=== PATIENT | male | born 1950 | race Caucasian/White ===

== ENCOUNTER 2017-07-22 15:14 | Inpatient (IN) | payer OTHER ==
[~2017-07-22] VITALS: Ht 147.3 cm; Wt 52.2 kg
--- NOTE | ~2017-07-22 | PLAN ---
[facility] [place] [address] REHAB UNIT PLAN OF CARE Name: JOE LITTLEJOHN Room #: 514-P ADM IN M.R.#: [id number] Admission: 07/22/17 Attend Phys: Gonzalo Santa MD Discharge: Date of : 50 Report #: [id number] THIS REPORT FOR: //name// CC: Gonzalo Bailey sadaf DATE OF SERVICE: 07/25/2017 SUBJECTIVE: The patient is seen back today in followup. He was in no distress. Last recorded temperature 98.8, pulse 82, respirations 16, blood pressure 116/69. He is alert, pleasant. He has dense left upper and left lower extremity plegia. We are using a khoury splint to the left upper extremity and utilizing a PRAFO boot for the left lower extremity. Transfers are dependent. He is to dependent sit to stand, dependent 7 feet with an assistive device including lifting device. As far as attempted gait. In occupational therapy, upper body dressing is mod assist, lower body dressing is dependent. Speech therapy, has mild comprehensive deficits. ASSESSMENT: 1. Right frontoparietal intraparenchymal hematoma. He has an AV malformation, being handled nonsurgically at this time. We will need follow up with Neurosurgery in 4-6 weeks. 2. Dense left upper and left lower extremity hemiplegia. 3. Some left hemisensory decrease. 4. Hypertension. 5. Diabetes mellitus. 6. Bipolar affective disorder. 7. Hyperlipidemia. PLAN: The overall plan of care is based on the preadmission screen, post-admission physician evaluation and information garnered from therapy assessments. 1. Estimated length of stay will likely be fairly long as he is at a lower functional level. 2. Medical prognosis is reasonably good. 3. Anticipated interventions includes the interdisciplinary acute inpatient rehabilitation program with the goal of maximizing the patient's functional independence, so he can return back to his prior living situation. 4. Anticipated functional outcomes would be for the patient to improve with basic transfers, functional mobility and ADLs and hopefully get some return back of the left side. Also to work on comprehension. 5. Discharge destination would be back to the home setting. At this point, would involve his sons. He has been living in a mobile home with 5 steps to enter on his son's property. He indicated his son's would be able to assist should he need it upon discharge. 6. Expected therapy by discipline includes PT and OT and speech 1 hour per day [address] [address] REHAB UNIT PLAN OF CARE Name: JOE LITTLEJOHN Room #: 514-P ADM IN M.R.#: [id number] Admission: 07/22/17 Attend Phys: Gonzalo Santa MD Discharge: Date of : 50 Report #: [id number] each five days a week throughout the duration of the acute inpatient rehabilitation stay. <ELECTRONICALLY SIGNED> By: Gonzalo Santa MD 07/28/17 1226 0914 192 Gonzalo Santa MD /MILES
--- NOTE | ~2017-07-22 | HC ---
[facility] [place] [address] CONSULTATION Name: JOE LITTLEJOHN Room #: 514-P [facility] IN M.R.#: [id number] Admission: 07/22/17 Attend Phys: Gonzalo Santa MD Discharge: Date of : 50 Report #: [id number] THIS REPORT FOR: //name// CC: Gonzalo Newman REASON FOR CONSULTATION: Consult has been requested by Dr. Santa for management of hypertension and diabetes. HISTORY OF PRESENT ILLNESS: The patient is a 66-year-old male with history of hypertension, hyperlipidemia, bipolar disorder, diabetes who was initially admitted on 07/13/2017 at [facility] for intracranial bleed. Initially, the patient presented to [facility] and was subsequently transferred to [facility]. He presented to [facility] with left-sided weakness and facial droop. CT scan showed right-sided frontoparietal intraparenchymal hemorrhage with surrounding cerebral edema and possible underlying mass. The patient underwent a cerebral angiogram, which showed AV malformation superficial and medial to the right frontoparietal hematoma. He has several feeding pedicles arising from the right MCA/SULMA branches. It is not amenable to intervention. The patient was seen by Neurosurgery and was advised to follow up with Neurosurgery in 4-6 weeks for possible intervention. PAST MEDICAL HISTORY: Significant for hypertension, hyperlipidemia and bipolar disorder. No diabetes. ALLERGIES: ALLERGIC TO CODEINE. Please look at the nursing documentation for reaction. SOCIAL HISTORY: No smoking. Denies any alcohol abuse or illicit drug abuse. He was living in a trailer on his ____ property. FAMILY HISTORY: Hypertension. HOME MEDICATIONS: The patient was discharged on Flomax, Seroquel, Sandie-Colace, lisinopril, Norvasc, Coreg, baclofen, alprazolam, Tylenol. He was on sliding scale insulin. Please look at the nursing documentation for the medication list. REVIEW OF SYSTEMS: He denies any complaint other than weakness on his right side at present. The patient is not very cooperative at present. He is little frustrated and upset that he has been seen by the physical therapist/speech therapist earlier today. PHYSICAL EXAMINATION: VITAL SIGNS: Reveal blood pressure of 89/54, heart rate of 69 per minute, afebrile. [address] [address] CONSULTATION Name: JOE LITTLEJOHN Room #: 514-P [facility] IN M.R.#: [id number] Admission: 07/22/17 Attend Phys: Gonzalo Santa MD Discharge: Date of : 50 Report #: [id number] GENERAL: He is awake, alert, not in acute respiratory distress. HEENT: Eyes: Pupils equal, reactive to light. Extraocular movements intact. He has left-sided facial droop. NECK: Supple, no JVD, no bruit, no lymphadenopathy. CARDIOVASCULAR: S1, S2, negative S3, no murmur. CHEST: Bilateral air entry present. Clear on auscultation. ABDOMEN: Soft, bowel sounds present. No mass, no organomegaly, no tenderness. PERIPHERY: No pedal edema. No calf tenderness. Dorsalis pedis 1+. NEUROLOGICAL: He has flattening of the left-sided furrow. He has profound weakness on the left side, upper and lower extremity, power is 1/5. LABORATORY DATA: Reviewed. White count is 17.9. Blood glucose of 142. His BUN and creatinine is 40 and 1.4. Sodium is 140. Platelet is 235. ASSESSMENT AND PLAN: 1. Left-sided hemiplegia secondary to right-sided frontoparietal intraparenchymal bleed with cerebral edema. The patient will continue on physical and occupational therapy as per Dr. Santa's recommendation. 2. Cerebral angiogram showed arteriovenous malformation superficial and medial to the right frontoparietal hematoma at [facility]. The patient needs to follow up with Neurosurgery in 4-6 weeks for possible intervention. 3. Hypertension. The patient's blood pressure is on the low end this morning. We will have parameters to hold blood pressure medications and monitor. 4. Leukocytosis. We will go ahead and get UA and also check a chest x-ray today. 5. Diabetes. The patient is presently on sliding scale insulin, which will be continued. We will check an A1c level. 6. History of bipolar disorder, on Seroquel. Treatment plan has been explained to the patient in detail. Deep venous thrombosis prophylaxis. He will be on SCD on the leg for DVT prophylaxis. <ELECTRONICALLY SIGNED> By: Terence Gunn MD 07/27/17 1540 1051 [id number] Terence Gunn MD /nt
--- NOTE | ~2017-07-22 | EKG ---
[address] [address] ELECTROCARDIOGRAM REPORT Name: JOE LITTLEJOHN Room #: 514-P [facility] IN M.R.#: [id number] Admission: 07/22/17 Attend Phys: Gonzalo Santa MD Discharge: 07/31/17 Date of : 50 Report #: [id number] THIS REPORT FOR: //name// [facility] Test Date: 2017-07-31 Test Time: 17:29:17 Pat Name: JOE LITTLEJOHN Department: Room: 514 Gender: M Bottle Hop: Moody LOPEZ : 1950 Requested By: Gonzalo Santa Order Number: [id number] MD: Joe Irvin Measurements Intervals Dawson Rate: 76 P: 42 IL: 138 QRS: 28 QRSD: 87 T: 31 QT: 379 QTc: 427 Interpretive Statements Sinus rhythm No significant abnormality No previous ECG available for comparison Electronically Signed On 08-01-2017 8:49:38 ANIMAL BIOLOGIST by Joe Irvin [email or web address] <ELECTRONICALLY SIGNED> By: Joe Irvin MD, [facility] 08/01/17 0849 1729 1729 Joe Irvin MD, FACC /EPI
--- NOTE | ~2017-07-22 | H ---
[facility] [place] [address] HISTORY AND PHYSICAL Name: JOE LITTLEJOHN Room #: 514-P ADM IN M.R.#: [id number] Admission: 07/22/17 Attend Phys: Gonzalo Santa MD Discharge: Date of : 50 Report #: [id number] THIS REPORT FOR: //name// CC: Gonzalo Bailey [facility]christy DATE OF SERVICE: 07/23/2017 HISTORY AND PHYSICAL/POSTADMISSION PHYSICIAN EVALUATION HISTORY OF PRESENT ILLNESS: The patient is a 66-year-old male with a prior history of hypertension, hyperlipidemia, bipolar disorder, diabetes mellitus who was originally seen at [facility] on 07/12/2017 after developing left-sided weakness and facial droop. He was noted to be hypertensive on admission in the 160s. CT of the head revealed a right-sided frontoparietal intraparenchymal hemorrhage with surrounding cerebral edema and possible underlying mass. He was transferred to [facility]. Neurosurgery consulted. He was placed on a Cardene drip. He had continued dense left hemiplegia with sensory deficits. He underwent cerebral angiogram, which showed an AVM superficial and medial to a right frontoparietal hematoma. This was not amenable to intervention. Plan is for followup in 4-6 weeks for possible procedure. He was started on amlodipine and lisinopril for hypertension. He also was started on atorvastatin for hyperlipidemia. He continued to have significant left-sided weakness, noted to have significant functional mobility and ADL deficits as well as cognitive concerns and visual perceptual issues. He has been admitted now in transfer to the acute inpatient rehabilitation [place] at [facility]. PAST MEDICAL HISTORY: Again includes the hypertension, hyperlipidemia, bipolar disorder and diabetes mellitus. His diabetes was noted to be uncontrolled at [facility]. ALLERGIES: INCLUDE CODEINE. SOCIAL HISTORY: He has been living on a trailer on his son's property. He has 2 sons that he indicates would be able to assist him. He indicated that there is a cousin, Ochoa Ng that he does not want to be involved with his care. Premorbidly he had been independent, ambulatory without gait aids. REVIEW OF SYSTEMS: Did not offer any current complaints of chest pain, shortness of breath, or abdominal discomfort. He has some frustration with the left-sided dense weakness as noted. No focal extremity pain complaints. HABITS: History of tobacco abuse. PHYSICAL EXAMINATION: [address] [address] HISTORY AND PHYSICAL Name: JOE LITTLEJOHN Room #: 514-P [facility] IN M.R.#: [id number] Admission: 07/22/17 Attend Phys: Gonzalo Santa MD Discharge: Date of : 50 Report #: [id number] GENERAL: A 66-year-old male in no obvious distress. VITAL SIGNS: Last recorded temperature 99.5, pulse 101, respirations 20, blood pressure 105/72. GENERAL: The patient is alert. HEENT: Facies appeared symmetric. He might have a mild depressed left nasolabial fold. EOMs appeared to be full. I could not detect any obvious visual field deficits to confrontation. CHEST: Sounded clear to auscultation. CARDIOVASCULAR: Regular rate and rhythm. ABDOMEN: Bowel sounds positive, nontender. GENITOURINARY AND RECTAL: Deferred. EXTREMITIES: He has functional range of motion and strength of the right upper and right lower extremity without focal weakness. He has dense left upper and left lower extremity flaccid plegia, proximal and distal. There is no clonus. Negative Rausch's. He does have grade 1-2 biceps DTR. Sensation actually was fairly intact to simultaneous stimulation left upper and left lower extremity compared to the right upper and right lower extremity. He does need assistance with basic functional mobility skills and he is at a lower functional level with his dense left hemiplegia. ASSESSMENT: A 66-year-old left-handed male with the following problem list: 1. Right frontoparietal intraparenchymal hematoma. He does have an AV malformation, which is currently being handled nonsurgically, but he will need to follow up with Neurosurgery in 4-6 weeks. 2. Dense left upper and left lower extremity hemiplegia. 3. Some left hemisensory decrease. 4. Hypertension. 5. Diabetes mellitus. 6. Bipolar affective disorder. 7. Hyperlipidemia. 8. History of tobacco abuse. PLAN: The patient is admitted for acute in-hospital inpatient rehabilitation. From a postadmission physician evaluation perspective, there are no relevant changes since the preadmission screening. Please see the above review of prior and current medical and functional conditions and comorbidities. Please see the patient's previous and current functional status. As far as risk of complications, he has multiple medical comorbidities as noted above. Measurable functional goals would be for the patient to improve as far as basic transfers, mobility and ADLs and cognition. Visual perceptual issues, so he can hopefully return back to the home setting. Prognosis is reasonably good with estimated length of stay probably fairly along with his lower functional level. Potential [facility] [address] [place] [address] HISTORY AND PHYSICAL Name: JOE LITTLEJOHN Room #: 514-P ADM IN M.R.#: [id number] Admission: 07/22/17 Attend Phys: Gonzalo Santa MD Discharge: Date of : 50 Report #: [id number] barriers would include his multiple medical comorbidities and decreased functional status. <ELECTRONICALLY SIGNED> By: Gonzalo Santa MD 07/28/17 1226 0913 0934 Gonzalo Santa MD /PMT
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
--- NOTE | ~2017-07-22 | HC ---
[facility] [place] [address] CONSULTATION Name: JOE LITTLEJOHN Room #: 514-P [facility] IN M.R.#: [id number] Admission: 07/22/17 Attend Phys: Gonzalo Santa MD Discharge: 07/31/17 Date of : 50 Report #: [id number] THIS REPORT FOR: //name// CC: Gonzalo Santa [facility] DATE OF SERVICE: 07/31/2017 HISTORY OF PRESENT ILLNESS: This is a 66-year-old male patient for whom a Neurology consultation was requested because this patient started having some twitching movements on the left upper and left lower extremity. History is somewhat poor. He indicates that he has a left hemiplegia because of what looks like an intracerebral hemorrhage or hemorrhagic stroke. He indicated this happened a few weeks ago, but he felt worse today. I do not have records from [facility], but I reviewed the record, which is here in the hospital and it looks like the deficit happened on about 07/12/2017 and this patient has an AV malformation. He never had any jay seizures. We do not have films from [facility]. REVIEW OF SYSTEMS: Positive for bipolar disorder, diabetes, hypertension and looks like this patient had AV malformation. His hypertension was uncontrolled and he needed multiple medications when he was in [facility]. I carried out the best I can a 14-point review of system and this was his relevant 14-point review of system. PAST MEDICAL HISTORY: Positive for hemorrhage, which occurred about 2 weeks ago and looked like because of AV malformation. FAMILY HISTORY: Negative for epilepsy. SOCIAL HISTORY: He says he smokes. PHYSICAL EXAMINATION: The patient's examination was limited. He is alert and responsive. He can follow simple commands. He is not complaining of any headache. He indicated his memory is at his baseline. Cranial nerve examination 2-12 demonstrated pretty significant left facial palsy. He has a pretty dense hemiplegia on the left side. There is no meningeal sign. There is no carotid bruit. IMAGING: He underwent a CT scan of the head and CT scan of the head does demonstrate what looks like a pretty large hemorrhage with a significant amount of edema. LABORATORY DATA: His labs were done a couple of days ago and his sodium was normal. [address] [address] CONSULTATION Name: JOE LITTLEJOHN Room #: 514-P [facility] IN .R.#: [id number] Admission: 07/22/17 Attend Phys: Gonzalo Santa MD Discharge: 07/31/17 Date of : 50 Report #: [id number] VITAL SIGNS: Here indicate a blood pressure of 143/70, respiration is 12, pulse is 78 and temperature is 98.4. IMPRESSION: This patient has a large intracerebral hemorrhage. He may be trying to develop seizures. The problem we are facing here is that I do not have his records and the films here. We also do not have any Neurosurgery here. I discussed that aspect with the patient. I asked Radiology to upload his images to the cloud and I talked to the hospitalist and I recommended that they talk to [facility] Neurosurgery and ask them to review the patient's CT scan and compare with the last CT scan and give us some direction if they want us to keep the patient here or wanted to be transferred there. Since we do not have any Neurosurgery and this patient does have AV malformation and bleed after that, we have to rely on the neurosurgeons there. I subsequently talked to the hospitalist again and they indicated that [facility] wants the patient to be transferred and the patient is going to be transferred. In this circumstances, I will defer further evaluation and management to [facility] neurosurgical team. Thank you very much for this referral and if you have any question, please feel free to contact me. More than 35 minutes of [id number] time was spent taking care of this patient today and majority of time was spent counseling the patient and coordinating his care. Thank you very much for this referral. <ELECTRONICALLY SIGNED> By: Salvador Del Rio MD 08/04/17 1659 27 0544 Salvador Del Rio MD /nt
[2017-07-22 18:00] VITALS: BP 103/67
[2017-07-22 20:13] VITALS: BP 105/72
[2017-07-23 03:55] LABS: HEMATOCRIT 43.2 % (42.0-52.0); HEMOGLOBIN 14.6 gm/dL (14.0-18.0); MCH 29.9 pg (26.0-34.0); MCHC 33.8 g/dL (28.0-37.0); MCV 88.4 fL (80.0-100.0); RBC 4.88 mil/uL (4.50-6.00); RDW 14.1 % (10.5-14.5); WBC 17.9 thou/uL (4.0-11.0)
[2017-07-23 03:59] LABS: CREATININE 1.4 mg/dL (0.7-1.3); POTASSIUM 3.7 mmol/L (3.5-5.1)
[2017-07-23 08:02] VITALS: BP 101/63
[2017-07-23 08:19] VITALS: BP 89/54
[2017-07-23 17:54] LABS: URINE BILIRUBIN NEGATIVE (Negative); URINE BLOOD NEGATIVE (Negative); URINE CLARITY CLEAR; URINE COLOR YELLOW; URINE GLUCOSE-RANDOM* NEGATIVE (Negative); URINE KETONES NEGATIVE (Negative); URINE LEUKOCYTES-REFLEX NEGATIVE (Negative); URINE NITRITE-REFLEX NEGATIVE (Negative); URINE PROTEIN (DIPSTICK) NEGATIVE (Negative); URINE UROBILINOGEN 0.2 E.U./dl (0.2-1.0)
[2017-07-23 19:10] VITALS: BP 108/69
[2017-07-24 04:13] LABS: CALCIUM 9.3 mg/dL (8.5-10.1); CREATININE 1.3 mg/dL (0.7-1.3); POTASSIUM 4.2 mmol/L (3.5-5.1)
[2017-07-24 04:25] LABS: ABSOLUTE NEUTROPHILS 7.7 thou/uL (1.4-8.2); BASOPHILS 0.9 % (0.0-2.0); HEMATOCRIT 42.4 % (42.0-52.0); HEMOGLOBIN 14.1 gm/dL (14.0-18.0); MCH 29.8 pg (26.0-34.0); MCHC 33.3 g/dL (28.0-37.0); MCV 89.3 fL (80.0-100.0); MONOCYTES 9.1 % (1.0-8.0); PLATELET COUNT 255 thou/uL (150-400); RBC 4.75 mil/uL (4.50-6.00); RDW 14.2 % (10.5-14.5); WBC 12.6 thou/uL (4.0-11.0)
[2017-07-24 08:00] VITALS: BP 110/76
[2017-07-24 19:00] VITALS: BP 116/69
[2017-07-25 08:00] VITALS: BP 99/58
[2017-07-25 12:40] VITALS: BP 125/72
[2017-07-25 15:51] VITALS: BP 108/54
[2017-07-25 19:35] VITALS: BP 96/50
[2017-07-26 07:59] VITALS: BP 111/66
[2017-07-26 20:35] VITALS: BP 114/51
[2017-07-27 08:00] VITALS: BP 111/62
[2017-07-27 19:19] VITALS: BP 138/105
[2017-07-28 08:30] VITALS: BP 130/75
[2017-07-28 20:46] VITALS: BP 119/68
[2017-07-29 05:52] LABS: ABSOLUTE NEUTROPHILS 9.5 thou/uL (1.4-8.2); BASOPHILS 1.1 % (0.0-2.0); EOSINOPHILS 3.1 % (0.0-3.0); HEMATOCRIT 44.9 % (42.0-52.0); HEMOGLOBIN 14.8 gm/dL (14.0-18.0); LYMPHOCYTES 18.2 % (24.0-44.0); MCH 29.1 pg (26.0-34.0); MONOCYTES 6.8 % (1.0-8.0); PLATELET COUNT 362 thou/uL (150-400); POLYS 70.8 % (36.0-66.0); RDW 13.9 % (10.5-14.5); WBC 13.4 thou/uL (4.0-11.0)
[2017-07-29 05:58] LABS: CALCIUM 9.3 mg/dL (8.5-10.1); CREATININE 1.4 mg/dL (0.7-1.3); MAGNESIUM 1.9 mg/dL (1.8-2.4); POTASSIUM 4.1 mmol/L (3.5-5.1)
[2017-07-29 08:00] VITALS: BP 148/72
[2017-07-29 19:10] VITALS: BP 95/68
[2017-07-30 07:57] VITALS: BP 108/60
[2017-07-30 13:07] LABS: URINE BILIRUBIN NEGATIVE (Negative); URINE BLOOD NEGATIVE (Negative); URINE CLARITY CLEAR; URINE COLOR YELLOW; URINE GLUCOSE-RANDOM* NEGATIVE (Negative); URINE KETONES NEGATIVE (Negative); URINE LEUKOCYTES-REFLEX NEGATIVE (Negative); URINE NITRITE-REFLEX NEGATIVE (Negative); URINE PROTEIN (DIPSTICK) NEGATIVE (Negative); URINE UROBILINOGEN 0.2 E.U./dl (0.2-1.0)
[2017-07-30 20:30] VITALS: BP 129/69
[2017-07-31 08:15] VITALS: BP 125/67
[2017-07-31] MEDS ORDERED: AMLODIPINE BESYL5 M1 PO (18:13)
[2017-07-31] MEDS ORDERED: FLOMAX0.4 MG PO (18:13)
[2017-07-31] MEDS ORDERED: ATORVASTATIN CA40 MG PO (18:13)
[2017-07-31] MEDS ORDERED: BACLOFEN 10MG T10 MG PO (18:13)
[2017-07-31] MEDS ORDERED: REMERON15 MG PO (18:14)
[2017-07-31] MEDS ORDERED: PANTOPRAZOLE SO40 M1 PO (18:14)
[2017-07-31] MEDS ORDERED: ACETAMINOPHEN325 M1 PO (18:14)
[2017-07-31] MEDS ORDERED: GABAPENTIN 100100 MG PO (18:14)
[2017-07-31] MEDS ORDERED: KEPPRA 500 MG500 M1 PO (18:14)
[2017-07-31 18:43] LABS: APTT 23.2 Seconds (24.5-32.8); PROTIME 9.9 Seconds (9.3-11.4)
[2017-07-31 18:55] VITALS: BP 143/70
== END 2017-07-31 20:13 | disposition short-term general hospital (02) | DRG 64 ==
PROVIDERS: Hospitalist; Internal Medicine; Nurse Practitioner; Physical Medicine & Rehabilitation
DX: I61.9 Nontraumatic intracerebral hemorrhage, unspecified (principal); G93.6 Cerebral edema; G81.94 Hemiplegia, unspecified affecting left nondominant side; Q27.30 Arteriovenous malformation, site unspecified; I10 Essential (primary) hypertension; E78.5 Hyperlipidemia, unspecified; F31.9 Bipolar disorder, unspecified; E11.9 Type 2 diabetes mellitus without complications; D72.829 Elevated white blood cell count, unspecified; R41.9 Unspecified symptoms and signs involving cognitive functions and awareness; N40.0 Benign prostatic hyperplasia without lower urinary tract symptoms; R53.81 Other malaise; G62.9 Polyneuropathy, unspecified; G47.00 Insomnia, unspecified; Z87.891 Personal history of nicotine dependence; Z88.5 Allergy status to narcotic agent; Z82.49 Family history of ischemic heart disease and other diseases of the circulatory system
CPT/HCPCS: 10092; 10112

== ENCOUNTER 2017-08-05 12:49 | Inpatient (IN) | payer OTHER ==
[~2017-08-05] VITALS: Ht 147.3 cm; Wt 49.9 kg
--- NOTE | ~2017-08-05 | H ---
[facility] [place] [address] HISTORY AND PHYSICAL Name: JOE LITTLEJOHN Room #: 503-P ADM IN M.R.#: [id number] Admission: 08/05/17 Attend Phys: Gonzalo Santa MD Discharge: Date of : 50 Report #: [id number] THIS REPORT FOR: //name// CC: [facility] DATE OF SERVICE: 08/06/2017 HISTORY AND PHYSICAL/POST-ADMISSION PHYSICIAN EVALUATION HISTORY OF PRESENT ILLNESS: This is a 66-year-old white male previously known to me with a prior history of hypertension, hyperlipidemia, bipolar disorder, diabetes mellitus, originally treated at [facility] on 07/12/2017 with developing left-sided weakness and facial droop. CT of the head revealed a right-sided frontoparietal intraparenchymal hemorrhage with surrounding cerebral edema and possible underlying mass. He was transferred to [facility]. Neurosurgery was consulted. A cerebral angiogram showed an AVM superficial and medial to a right frontoparietal hematoma. This was not amenable to intervention. Plan was to follow up in 4-6 weeks for possible procedure. The patient was noted to have significant left-sided weakness and was admitted to the inpatient rehabilitation [place] at [facility]. While he was here before he was continuing in the therapy program and on 07/31/2017, he developed recurrent acute facial symptoms. Code stroke. Neurology evaluation was undertaken with concern for worsening intracerebral bleed and/or edema. He was transferred back to [facility]. CT revealed increased edema without evidence of intracerebral hemorrhage. Decadron was started and Neurosurgery was consulted. The findings were thought to be due to irritation of the brain related to the prior intracerebral hemorrhage with breakdown of blood products. No acute surgical intervention was indicated. Recommended Keppra and followup CT in 1-2 weeks and Neurosurgery will see him in their clinic. Decadron was continued with a slow tapering dose. He did have initial elevation of the white blood count and appeared to be slowly trending down with the tapering of the Decadron. He has been readmitted now to the acute inpatient rehab salomon with the steroid taper and continuation of Keppra. PAST MEDICAL HISTORY: Includes hypertension, hyperlipidemia, bipolar disorder, and diabetes mellitus. ALLERGIES: INCLUDE CODEINE. SOCIAL HISTORY: He has been living in a trailer on his son's property. He has 2 sons that he indicates would be able to assist him. Premorbidly, he had been independent, ambulatory without gait aids. REVIEW OF SYSTEMS: No current complaints of chest pain, shortness of breath or abdominal discomfort. No focal extremity pain complaints. [address] [address] HISTORY AND PHYSICAL Name: JOE LITTLEJOHN Room #: 503-P [facility] IN M.R.#: [id number] Admission: 08/05/17 Attend Phys: Gonzalo Santa MD Discharge: Date of : 50 Report #: [id number] HABITS: History of tobacco abuse. PHYSICAL EXAMINATION: GENERAL: A 66-year-old small statured, thin, white male in no obvious distress. VITAL SIGNS: Last recorded temperature 97.8, pulse 63, respirations 20, blood pressure 113/68. NEUROLOGIC: The patient is alert. He is pleasant. Depressed left nasolabial fold. CHEST: Sounded clear to auscultation. CARDIOVASCULAR: Regular rate and rhythm. ABDOMEN: Bowel sounds positive, nontender. GENITOURINARY AND RECTAL: Deferred. EXTREMITIES: Functional range of motion and strength of the right upper and right lower extremity without focal weakness. He has dense left upper extremity plegia with some increase in tone, although he has a negative Rausch's. He has a grade 2 biceps DTR and the left lower extremity appears to have some increase in tone. 2-3+ patellar tendon reflex, although no clonus at the ankle. I could not elicit any volitional movement even proximally of that left lower extremity. Sensation has been fairly intact to simultaneous stimulation of left upper and left lower extremity. He has needed significant assistance with basic functional mobility skills. ASSESSMENT: A 66-year-old left-handed white male with the following problem list: 1. Right frontoparietal intraparenchymal hematoma. He has an AV malformation and Neurosurgery indicates that he is not a surgical candidate. 2. Seizure activity, thought due to irritation of his brain related to the prior intracerebral hemorrhage with breakdown of blood products. Keppra has been recommended with followup CT in 1-2 weeks. We will have Neurology follow here. The patient is to follow up with Neurosurgery on 08/14/2017 at 09:[address] scan and at 10:[address] Calhoun again in Neurosurgery. 3. Dense left upper extremity and left lower extremity hemiplegia. 4. Some left hemisensory decrease. 5. Hypertension. 6. Diabetes mellitus. 7. Bipolar affective disorder. 8. Hyperlipidemia. 9. History of tobacco abuse. 10. Insomnia. Trazodone p.r.n. PLAN: As noted above. We will ask Neurology to continue to follow as noted above. The Hospitalist Service to continue to assist regarding medical issues. From a postadmission physician evaluation perspective, there are no relevant changes since the preadmission screening. Please see the above review of prior and current medical and functional conditions and comorbidities. Please see the [facility] [place] [address] HISTORY AND PHYSICAL Name: JOE LITTLEJOHN Room #: 503-P ADM IN M.R.#: [id number] Admission: 08/05/17 Attend Phys: Gonzalo Santa MD Discharge: Date of : 50 Report #: [id number] patient's previous and current functional status. As far as risk of complications, the patient has the above noted multiple medical comorbidities. Initial plan of care involves the interdisciplinary acute inpatient rehabilitation program with the goal of maximizing the patient's functional independence, so he can hopefully return back to his prior living situation. Measurable functional goals would be for him to ideally become at least independent at a wheelchair level and then will need to progress from there. PROGNOSIS: Reasonably good with estimated length of stay probably pretty long as he is at a lower functional level. Potential barriers would include his medical complexity issues and significant decreased functional status. We will place him on seizure precautions. <ELECTRONICALLY SIGNED> By: Gonzalo Santa MD 08/06/17 1051 [id number] Gonzalo Santa MD /[facility]
--- NOTE | ~2017-08-05 | HC ---
[facility] [place] [address] CONSULTATION Name: JOE LITTLEJOHN Room #: 503-P [facility] IN M.R.#: [id number] Admission: 08/05/17 Attend Phys: Gonzalo Santa MD Discharge: Date of : 50 Report #: [id number] THIS REPORT FOR: //name// CC: Gonzalo Bailey [facility]christy DATE OF SERVICE: 08/09/2017 NEUROBEHAVIORAL STATUS EXAM: ATTENDING PHYSICIAN: Gonzalo Santa MD. CLOUD DEVELOPER: Brijesh Lee, PhD. CLINICAL PRESENTATION: The patient is a 66-year-old male admitted to [facility] rehabilitation unit for comprehensive inpatient rehabilitation program to improve functional mobility, activities of daily living and self-care and mental status secondary to deficits from a right frontoparietal intraparenchymal hematoma. The patient was reported to have had an AV malformation with Neurosurgery indicating that he is not a surgical candidate. The patient also has a seizure disorder secondary to neural irritation related to the intracerebral hemorrhage. Keppra has been initiated. ADDITIONAL DIAGNOSES: Include dense left upper extremity and left lower extremity hemiplegia, left hemisensory decrease, hypertension, diabetes mellitus, bipolar affective disorder, hyperlipidemia, history of tobacco abuse and use of trazodone for insomnia. A complete description of his medical condition and history can be found in his medical record. Neuropsychological consultation was requested to provide assistance in the assessment of cognitive and emotional status and to provide recommendations and services. Prior to this most recent admission, he was living in a camper on his son's property. The patient has had difficulty with judgment and problem solving. Apparently, he had run out of blood pressure medication upon leaving the home of an aunt and an uncle. He reported leaving their house because of drug abusing borders that they were taking in. Moving out of their house led to his inabilty to acquire continued medical care. 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 He has not abused drugs in the last 7 months. He has had treatment programs for depression, anxiety, and drug abuse. TECHNIQUES UTILIZED: Clinical interview, review of medical records, staff consultation and behavioral observation, mini mental status exam 2 standard version, clock drawing and category fluency assessment. EXAMINATION FINDINGS: The patient was alert and cooperative with the [address] [address] CONSULTATION Name: JOE LITTLEJOHN Room #: 503-P [facility] IN .R.#: [id number] Admission: 08/05/17 Attend Phys: Gonzalo Santa MD Discharge: Date of : 50 Report #: [id number] assessment. He accurately described the reasons for his hospitalization. There is no evidence of aphasia. His thoughts are logical and goal oriented. There is no evidence of thought disorder. Thought content is within normal limits. His primary concerns are of sleep, anxiety, word finding and memory. Previous diagnoses of bipolar disorder, PTSD and depression are reported. His performance on the MMSE 2 brief version was in the borderline range with a raw score of 13 of 16, T score 35, percentile rank of 7. His performance on the MMSE 2 standard version was in the borderline to extremely low range with a raw score of 22 of 30 and a T score of 29 and percentile rank of 2. He was 1 of 5 for serial 7's. The patient was unable to accurately copy a simple geometric design. Brief abstract reasoning test was within normal limits. His performance on category fluency test was a raw score of 23, which is within normal limits. DIAGNOSTIC IMPRESSION: Neurocognitive disorder, due to vascular disease, without behavior disorder -- extent to be determined -- likely in the mild to moderate range. Cocaine and methamphetamine abuse -- by history. Bipolar disorder and hyperlipidemia. RECOMMENDATIONS: The patient is presenting with decreased inhibition and is likely to be somewhat impulsive. Difficulty with concentration and immediate recall along with visual spatial organization will interfere with overall adaptive functioning. The use of compensatory strategies for areas of decreased functioning are indicated. Thank you very much for allowing me to provide the consultation on this patient. <ELECTRONICALLY SIGNED> By: Brijesh Lee, PhD 08/10/17 1503 [id number] Brijesh Lee, PhD /nt
--- NOTE | ~2017-08-05 | PLAN ---
[facility] [place] [address] REHAB UNIT PLAN OF CARE Name: JOE LITTLEJOHN Room #: 503-P ADM IN M.R.#: [id number] Admission: 08/05/17 Attend Phys: Gonzalo Santa MD Discharge: Date of : 50 Report #: [id number] THIS REPORT FOR: //name// CC: Gonzalo Newman DATE OF SERVICE: 08/07/2017 SUBJECTIVE: The patient is seen back today in followup. He is in no distress. Last recorded temperature is 98.3, pulse 79, respirations 16, blood pressure 107/63. Notes he is not sleeping very well. He is on the Decadron with a taper. We will defer to the hospitalist if they want to change his trazodone dosing as discussed with nursing. From a functional perspective, he is transferring with max assist and gait is max assist 20 feet with a front-wheeled walker with a left AFO. In occupational therapy, lower body dressing is max assist. In speech therapy, there are mild comprehensive deficits noted. ASSESSMENT: 1. Right frontoparietal intraparenchymal hemorrhage. He has an AV malformation and Neurosurgery indicates that he is not a surgical candidate. 2. Seizure activity. Keppra recommended with followup CT in 1-2 weeks. 3. Dense left upper extremity and left lower extremity hemiplegia. 4. Some hemisensory decrease. 5. Hypertension. 6. Diabetes mellitus. 7. Bipolar affective disorder. 8. Hyperlipidemia. 9. History of tobacco abuse. 10. Insomnia. We will defer further trazodone dosing changes to the hospitalist. PLAN: The overall plan of care is based on the preadmission screen, post-admission physician evaluation, and information garnered from therapy assessments. 1. Estimated length of stay is probably several weeks with his lower level of function. 2. Medical prognosis is reasonably good. 3. Anticipated interventions includes the interdisciplinary acute inpatient rehabilitation program. 4. Anticipated functional outcomes would be for the patient to maximize his independence with mobility and ADLs as well as cognition to become independent ideally at least at the wheelchair level and to further improve his functional independence with the walker. 5. Discharge destination will be home with family. 6. Expected therapy by discipline includes PT, OT, and speech 1 [place] [address] REHAB UNIT PLAN OF CARE Name: ERONJOE Room #: 503-P [facility] IN .R.#: [id number] Admission: 08/05/17 Attend Phys: Gonzalo Santa MD Discharge: Date of : 50 Report #: [id number] each, five days a week throughout the duration of the acute inpatient rehabilitation stay. <ELECTRONICALLY SIGNED> By: Gonzalo Santa MD 08/08/17 [id number] [id number] Gonzalo Santa MD /PMT
--- NOTE | ~2017-08-05 | HC ---
[facility] [place] [address] CONSULTATION Name: JOE LITTLEJOHN Room #: 503-P ADM IN M.R.#: [id number] Admission: 08/05/17 Attend Phys: Gonzalo Santa MD Discharge: Date of : 50 Report #: [id number] THIS REPORT FOR: //name// CC: Gonzalo Newman DATE OF SERVICE: 08/06/2017 HISTORY OF PRESENT ILLNESS: This is a 66-year-old male patient who was seen by me during last admission. This patient has a large hematoma in the right frontal area secondary to AV malformation. He follows up with a neurosurgeon at [facility]. This patient was started on Keppra. This patient has not had any further episode since starting him on Keppra. He was also started on dexamethasone. This was all done by neurosurgeon. He indicated that he is doing very well and in fact is not having any seizure-like activity or any other neurological symptom. REVIEW OF SYSTEMS: Positive for hypertension, hyperlipidemia, bipolar disorder, diabetes and he is on steroids at the moment. He had a large hematoma in the right frontal area. Otherwise, he is saying is feeling good and is not having any visual, ENT symptom, is not complaining of any chest pain or respiratory difficulty. He denies any GI, symptoms. Does not complain of any musculoskeletal, constitutional, dermatological, hematological, throat and allergic symptom. PAST MEDICAL HISTORY: Positive for what looks like AV malformation with bleeding and Neurosurgery is handling it. FAMILY HISTORY: Negative for any congenital epilepsies. SOCIAL HISTORY: Indicates that he has a history of tobacco use. PHYSICAL EXAMINATION: NEUROLOGICAL: Indicate that patient is alert, responsive, able to follow simple and complex command. He says he feels good. His speech looks okay. His cranial nerve examination 2 through 12 indicates left facial weakness. He otherwise does not appear to have any hemianopsia. He does have dense hemiplegia on the left side. He indicates he does have some feeling there. He does not have any cerebellar signs on the right side. CARDIAC: Examination looks unremarkable. RESPIRATORY: Examination looks unremarkable. VITAL SIGNS: His blood pressure is 109/61, respirations 18 and pulse is 62. LABORATORY DATA: Indicate WBC count of 20.9 but he is on steroids. His last magnesium was normal. Looks like his vitamin D was low. He is tolerating his Keppra reasonably well. He does not have any edema, cyanosis or jaundice. [facility] [address] [place] [address] CONSULTATION Name: JOE LITTLEJOHN Room #: 503-P ADM IN M.R.#: [id number] Admission: 08/05/17 Attend Phys: Gonzalo Santa MD Discharge: Date of : 50 Report #: [id number] IMPRESSION: Arteriovenous malformation and intracerebral bleeds are handled by Neurosurgery and I do not have any expertise in that. I will suggest coordinating his care with the neurosurgeon at [facility], especially to see how long they want to continue Decadron and what schedule they recommend in tapering it off. He is already on Keppra and do not have any side effect. If any seizure-like activity is noticed, please contact us and we will be happy to help, but he is not having any of those problem at the moment. I will suggest keeping a good eye on his electrolyte imbalances including magnesium level and correcting other metabolic abnormality including vitamin D. RECOMMENDATIONS: As I mentioned above, I do not have any expertise in handling AV malformation because these are handled by Neurosurgery. No neurosurgeon comes here and I will suggest coordinating his care with the neurosurgeon at [facility], especially his Decadron taper. If any help is needed neurologically like if the patient started having seizures, please let me know otherwise, this is a neurosurgical case and I will suggest coordinating his care with the neurosurgeon. Thank you very much for this referral and if you have any question, please feel free to contact me. <ELECTRONICALLY SIGNED> By: Salvador Del Rio MD 08/14/17 [id number] [id number] Salvador Del Rio MD /nt
[~2017-08-05 12:49] MED LIST: ACETAMINOPHEN325 M1 PO; AMLODIPINE BESYL5 M1 PO; ATORVASTATIN CA40 MG PO; BACLOFEN 10MG T10 MG PO; FLOMAX0.4 MG PO; GABAPENTIN 100100 MG PO; KEPPRA 500 MG500 M1 PO; PANTOPRAZOLE SO40 M1 PO; REMERON15 MG PO
[2017-08-05] MEDS ORDERED: DEXAMETHASONE4 MG PO (13:53)
[2017-08-05] MEDS ORDERED: KEPPRA 500 MG500 M1 PO (13:56)
[2017-08-05] MEDS ORDERED: LISINOPRIL20 MG PO (13:57)
[2017-08-05] MEDS ORDERED: XANAX 0.25 MG0.25 MG PO (13:59)
[2017-08-05] MEDS ORDERED: TUMS PO (14:01)
[2017-08-05] MEDS ORDERED: COREG25 MG PO (14:02)
[2017-08-05] MEDS ORDERED: AMARYL2 M1 PO (14:03)
[2017-08-05] MEDS ORDERED: HYDROCODONE-AP1 EAC6 PO (14:04)
[2017-08-05] MEDS ORDERED: NOVOLOG100 UNIT/1 SUBQ (14:05)
[2017-08-05] MEDS ORDERED: ZYPREXA 5 MG TAB5 MG SUBLING (14:08)
[2017-08-05] MEDS ORDERED: SEROQUEL 50 MG50 MG PO (14:08)
[2017-08-05] MEDS ORDERED: SENOKOT-S1 TA2 PO (14:09)
[2017-08-05 15:00] VITALS: BP 100/60
[2017-08-05 20:00] VITALS: BP 113/68
[2017-08-06 04:16] LABS: CALCIUM 9.1 mg/dL (8.5-10.1); CREATININE 1.8 mg/dL (0.7-1.3); POTASSIUM 4.6 mmol/L (3.5-5.1)
[2017-08-06 05:15] LABS: HEMATOCRIT 43.6 % (42.0-52.0); HEMOGLOBIN 14.5 gm/dL (14.0-18.0); MCH 28.9 pg (26.0-34.0); MCHC 33.3 g/dL (28.0-37.0); RBC 5.01 mil/uL (4.50-6.00); RDW 14.2 % (10.5-14.5); WBC 20.9 thou/uL (4.0-11.0)
[2017-08-06 06:30] VITALS: BP 109/61
[2017-08-06 20:05] VITALS: BP 116/71
[2017-08-07 08:40] VITALS: BP 107/63
[2017-08-07 20:33] VITALS: BP 122/72
[2017-08-08 20:14] VITALS: BP 127/70
[2017-08-09 07:30] VITALS: BP 126/65
[2017-08-09 19:47] VITALS: BP 112/72
[2017-08-10 08:00] VITALS: BP 143/76
[2017-08-10 21:09] VITALS: BP 138/70
[2017-08-11 05:38] LABS: ABSOLUTE NEUTROPHILS 14.1 thou/uL (1.4-8.2); BASOPHILS 0.1 % (0.0-2.0); EOSINOPHILS 0.5 % (0.0-3.0); HEMATOCRIT 40.7 % (42.0-52.0); HEMOGLOBIN 13.5 gm/dL (14.0-18.0); LYMPHOCYTES 9.2 % (24.0-44.0); MCH 29.2 pg (26.0-34.0); MCV 88.5 fL (80.0-100.0); MONOCYTES 7.2 % (1.0-8.0); PLATELET COUNT 244 thou/uL (150-400); RDW 14.2 % (10.5-14.5)
[2017-08-11 05:49] LABS: CALCIUM 9.1 mg/dL (8.5-10.1); CREATININE 1.5 mg/dL (0.7-1.3); MAGNESIUM 1.7 mg/dL (1.8-2.4); POTASSIUM 4.8 mmol/L (3.5-5.1)
[2017-08-11 08:00] VITALS: BP 136/82
[2017-08-11 19:20] VITALS: BP 119/68
[2017-08-12 08:00] VITALS: BP 138/78
[2017-08-12 19:29] VITALS: BP 131/85
[2017-08-13 08:30] VITALS: BP 133/79
[2017-08-13 19:22] VITALS: BP 138/82
[2017-08-14 10:45] VITALS: BP 118/62
[2017-08-14 19:53] VITALS: BP 120/70
[2017-08-15 05:59] LABS: BASOPHILS 0.1 % (0.0-2.0); EOSINOPHILS 1.4 % (0.0-3.0); LYMPHOCYTES 17.3 % (24.0-44.0); MCH 29.4 pg (26.0-34.0); MCHC 33.4 g/dL (28.0-37.0); MCV 87.9 fL (80.0-100.0); MONOCYTES 8.2 % (1.0-8.0); PLATELET COUNT 187 thou/uL (150-400); RBC 4.09 mil/uL (4.50-6.00); RDW 14.3 % (10.5-14.5); WBC 19.2 thou/uL (4.0-11.0)
[2017-08-15 06:07] LABS: CALCIUM 7.9 mg/dL (8.5-10.1); CREATININE 1.3 mg/dL (0.7-1.3); MAGNESIUM 1.9 mg/dL (1.8-2.4); POTASSIUM 4.5 mmol/L (3.5-5.1)
[2017-08-15 08:10] VITALS: BP 145/78
[2017-08-15 20:27] VITALS: BP 118/74
[2017-08-16 08:00] VITALS: BP 119/65
[2017-08-16 19:10] VITALS: BP 134/60
[2017-08-17 19:10] VITALS: BP 139/58
[2017-08-18 00:15] LABS: URINE BILIRUBIN NEGATIVE (Negative); URINE BLOOD NEGATIVE (Negative); URINE CLARITY CLEAR; URINE COLOR YELLOW; URINE GLUCOSE-RANDOM* NEGATIVE (Negative); URINE KETONES NEGATIVE (Negative); URINE LEUKOCYTES-REFLEX NEGATIVE (Negative); URINE NITRITE-REFLEX NEGATIVE (Negative); URINE PROTEIN (DIPSTICK) NEGATIVE (Negative); URINE SPECIFIC GRAVITY 1.015 (1.005-1.035); URINE UROBILINOGEN 0.2 E.U./dl (0.2-1.0)
[2017-08-18 06:09] LABS: ABSOLUTE NEUTROPHILS 13.1 thou/uL (1.4-8.2); BASOPHILS 0.2 % (0.0-2.0); EOSINOPHILS 1.2 % (0.0-3.0); HEMATOCRIT 34.2 % (42.0-52.0); HEMOGLOBIN 11.4 gm/dL (14.0-18.0); MCH 29.4 pg (26.0-34.0); MCHC 33.3 g/dL (28.0-37.0); MCV 88.4 fL (80.0-100.0); MONOCYTES 6.4 % (1.0-8.0); PLATELET COUNT 153 thou/uL (150-400); POLYS 73.2 % (36.0-66.0); RBC 3.87 mil/uL (4.50-6.00); RDW 14.6 % (10.5-14.5)
[2017-08-18 06:20] LABS: CALCIUM 8.5 mg/dL (8.5-10.1); CREATININE 1.3 mg/dL (0.7-1.3); POTASSIUM 4.1 mmol/L (3.5-5.1)
[2017-08-18 06:58] LABS: TSH 0.946 uIU/mL (0.358-3.740)
[2017-08-18 08:30] VITALS: BP 135/81
[2017-08-18 20:41] VITALS: BP 129/70
[2017-08-19 07:45] VITALS: BP 147/69
[2017-08-19 19:00] VITALS: BP 110/65
[2017-08-20 08:00] VITALS: BP 111/53
[2017-08-20 19:15] VITALS: BP 123/69
[2017-08-21 08:35] VITALS: BP 123/70
[2017-08-21 19:48] VITALS: BP 132/78
[2017-08-22 08:00] VITALS: BP 119/70
[2017-08-22 20:14] VITALS: BP 106/56
[2017-08-23 03:19] LABS: ABSOLUTE NEUTROPHILS 10.6 thou/uL (1.4-8.2); BASOPHILS 0.3 % (0.0-2.0); EOSINOPHILS 1.1 % (0.0-3.0); HEMATOCRIT 35.3 % (42.0-52.0); HEMOGLOBIN 11.7 gm/dL (14.0-18.0); LYMPHOCYTES 15.4 % (24.0-44.0); MCH 29.6 pg (26.0-34.0); MCHC 33.1 g/dL (28.0-37.0); MCV 89.4 fL (80.0-100.0); MONOCYTES 4.8 % (1.0-8.0); PLATELET COUNT 103 thou/uL (150-400); POLYS 78.4 % (36.0-66.0); RBC 3.95 mil/uL (4.50-6.00); RDW 15.1 % (10.5-14.5); WBC 13.5 thou/uL (4.0-11.0)
[2017-08-23 03:31] LABS: CALCIUM 8.7 mg/dL (8.5-10.1); CREATININE 1.3 mg/dL (0.7-1.3); MAGNESIUM 1.8 mg/dL (1.8-2.4); POTASSIUM 4.2 mmol/L (3.5-5.1)
[2017-08-23 08:00] VITALS: BP 118/72
[2017-08-23 20:55] VITALS: BP 126/78
[2017-08-23 21:22] VITALS: BP 114/68
[2017-08-24 07:50] VITALS: BP 121/63
[2017-08-24 21:13] VITALS: BP 110/67
[2017-08-25 07:19] LABS: ABSOLUTE NEUTROPHILS 8.5 thou/uL (1.4-8.2); BASOPHILS 0.8 % (0.0-2.0); EOSINOPHILS 1.8 % (0.0-3.0); HEMATOCRIT 36.8 % (42.0-52.0); HEMOGLOBIN 12.2 gm/dL (14.0-18.0); LYMPHOCYTES 21.1 % (24.0-44.0); MCH 29.4 pg (26.0-34.0); MCHC 33.3 g/dL (28.0-37.0); MCV 88.5 fL (80.0-100.0); PLATELET COUNT 147 thou/uL (150-400); POLYS 70.3 % (36.0-66.0); RBC 4.16 mil/uL (4.50-6.00); RDW 15.4 % (10.5-14.5); WBC 12.1 thou/uL (4.0-11.0)
[2017-08-25 07:20] LABS: CALCIUM 9.1 mg/dL (8.5-10.1); CREATININE 1.3 mg/dL (0.7-1.3); POTASSIUM 4.3 mmol/L (3.5-5.1)
[2017-08-25 08:00] VITALS: BP 109/61
[2017-08-25 19:30] VITALS: BP 101/66
[2017-08-26 08:00] VITALS: BP 106/69
[2017-08-26 19:20] VITALS: BP 92/58
[2017-08-27 08:15] VITALS: BP 108/66
[2017-08-27 20:16] VITALS: BP 112/70
[2017-08-28 08:00] VITALS: BP 126/71
[2017-08-28 20:04] VITALS: BP 97/68
[2017-08-29 07:30] VITALS: BP 104/67
[2017-08-29 19:50] VITALS: BP 98/64
[2017-08-30 08:00] VITALS: BP 111/65
[2017-08-30 19:17] VITALS: BP 92/62
[2017-08-31 07:28] VITALS: BP 106/56
[2017-08-31 19:05] VITALS: BP 107/67
[2017-09-01 05:34] LABS: ABSOLUTE NEUTROPHILS 4.3 thou/uL (1.4-8.2); BASOPHILS 1.1 % (0.0-2.0); EOSINOPHILS 4.2 % (0.0-3.0); HEMOGLOBIN 11.5 gm/dL (14.0-18.0); LYMPHOCYTES 24.5 % (24.0-44.0); MCH 29.4 pg (26.0-34.0); MONOCYTES 9.7 % (1.0-8.0); PLATELET COUNT 231 thou/uL (150-400); POLYS 60.5 % (36.0-66.0); RBC 3.93 mil/uL (4.50-6.00); RDW 15.8 % (10.5-14.5); WBC 7.1 thou/uL (4.0-11.0)
[2017-09-01 05:47] LABS: CALCIUM 8.7 mg/dL (8.5-10.1); CREATININE 1.5 mg/dL (0.7-1.3); POTASSIUM 3.9 mmol/L (3.5-5.1)
[2017-09-01 08:30] VITALS: BP 112/62
[2017-09-01 20:02] VITALS: BP 117/75
[2017-09-02 08:15] VITALS: BP 111/67
[2017-09-02] MEDS ORDERED: TRAZODONE HCL100 MG PO (13:07)
[2017-09-02] MEDS ORDERED: OXYBUTYNIN 5 MG5 M2 PO (13:07)
[2017-09-02] MEDS ORDERED: VITAMIN B-12500 MCG PO (13:07)
[2017-09-02 19:30] VITALS: BP 112/60
[2017-09-03 07:30] VITALS: BP 105/66
[2017-09-03] MEDS ORDERED: AMARYL2 M1 PO (09:42)
[2017-09-03] MEDS ORDERED: SENOKOT-S1 TA2 PO (09:42)
[2017-09-03] MEDS ORDERED: TRAZODONE HCL100 MG PO (09:42)
[2017-09-03] MEDS ORDERED: OXYBUTYNIN 5 MG5 M2 PO (09:42)
[2017-09-03] MEDS ORDERED: GABAPENTIN 100100 MG PO (09:42)
[2017-09-03] MEDS ORDERED: VITAMIN B-12500 MCG PO (09:42)
[2017-09-03] MEDS ORDERED: LISINOPRIL20 MG PO (09:42)
[2017-09-03] MEDS ORDERED: FLOMAX0.4 MG PO (09:42)
[2017-09-03] MEDS ORDERED: ATORVASTATIN CA40 MG PO (09:42)
[2017-09-03] MEDS ORDERED: PANTOPRAZOLE SO40 M1 PO (09:42)
[2017-09-03] MEDS ORDERED: KEPPRA 500 MG500 M1 PO (09:42)
[2017-09-03 20:00] VITALS: BP 110/70
[2017-09-04 08:00] VITALS: BP 106/77
[2017-09-04 16:00] VITALS: BP 108/66
[2017-09-04 19:46] VITALS: BP 100/60
[2017-09-05 07:15] VITALS: BP 120/58
[2017-09-05 08:15] VITALS: BP 120/58
[2017-09-06 09:45] LABS: T-SPOT.TB Negative
== END 2017-09-05 13:14 | DRG 64 ==
PROVIDERS: Family Medicine; Hospitalist; Nurse Practitioner; Physical Medicine & Rehabilitation
DX: I61.1 Nontraumatic intracerebral hemorrhage in hemisphere, cortical (principal); G93.6 Cerebral edema; Q28.2 Arteriovenous malformation of cerebral vessels; I63.9 Cerebral infarction, unspecified; G81.94 Hemiplegia, unspecified affecting left nondominant side; N17.9 Acute kidney failure, unspecified; I10 Essential (primary) hypertension; E78.5 Hyperlipidemia, unspecified; F31.9 Bipolar disorder, unspecified; E11.9 Type 2 diabetes mellitus without complications; Z88.6 Allergy status to analgesic agent; G47.00 Insomnia, unspecified; R41.9 Unspecified symptoms and signs involving cognitive functions and awareness; R53.81 Other malaise; D72.829 Elevated white blood cell count, unspecified; G62.9 Polyneuropathy, unspecified; T38.0X5A Adverse effect of glucocorticoids and synthetic analogues, initial encounter; Y92.89 Other specified places as the place of occurrence of the external cause; E83.42 Hypomagnesemia; N40.1 Benign prostatic hyperplasia with lower urinary tract symptoms; R39.15 Urgency of urination; F32.9 Major depressive disorder, single episode, unspecified; Z23 Encounter for immunization
CPT/HCPCS: 10112

== ENCOUNTER 2021-05-31 15:03 | Inpatient (IN) | payer OTHER ==
[~2021-05-31] VITALS: Ht 149.9 cm; Wt 51.3 kg
--- NOTE | ~2021-05-31 | EMS ---
[address] [address] EMS Patient Care Report Name: JOE LITTLEJOHN Room #: REG DXETER Callaway#: [id number] Admission: 05/31/21 Attend Phys: Discharge: Date of : 50 Report #: [id number] THIS REPORT FOR: //name// Report Transmitted: 05/31/2021 15:56 EMS Care Summary [place], [place]/[facility] Incident [id number] @ 05/31/2021 14:11 Incident Location [address] [address] Patient JOE LITTLEJOHN Male, 70 Years 1950 Patient Address [address] [place] [address] Patient History Hypertension (HTN),Stroke/CVA,Hyperlipidemia,Brain Tumor, Patient Allergies Codeine, Chief Complaint altered mental status Disposition Transported No Lights/[place] Reason Falls Transported To [facility] Narrative arrived to find pt on bathroom floor repeating "help me". chief engineering division came over to find pt lying on bathroom floor w/ wheelchair nearby. pt does not appear injured. he is normally a&o but now only says "help me" and reaches out to grab anyone nearby. pt has past hx of stroke w/ L side paralysis. pt eyes are "glassy". chief engineering division states pt has had occasional problems w/ drugs and /or [address] [address] EMS Patient Care Report Name: JOE LITTLEJOHN Room #: REG Christiano.#: [id number] Admission: 05/31/21 Attend Phys: Discharge: Date of : 50 Report #: [id number] alcohol. last known normal was 8 AM when someone talked to him on phone. pt to be eval at [facility] per family. pt to cot, VS, pt to unit, IV TKO, EKG, transport w/o change. [facility] diverts pt due to it meeting their stroke criteria and are closed to stroke. pt to next closest, [facility]. report to staff on arrival. Initial Vitals @14:38P: 78,R: 18,BP: 129/64,GCS: 12,Glucose: 147,SpO2: 93,Revised Trauma: 11, Assessments @14:22MENTAL:Confused,Person Oriented,SKIN:No Abnormalities,HEENT:Eyes: Left Pupil: 3-mm,Eyes: Right Pupil: 3-mm,LUNG SOUNDS:ABDOMEN:PELVIS//GI:Incontinence,EXTREMITIES:PULSE:Radial: 2+ Normal,NEURO: Impression Altered Mental Status Procedures @14:22 ALS Assessment Response: Unchanged @14:38 3-Lead ECG Response: Unchanged @14:24 Stretcher Response: Unchanged @14:45 IV Therapy - Saline Lock 10cc (20 ga) Site: Forearm-Right Response: UnchangedSucceeded @14:42 Oxygen FlowRate: 2 Device: Nasal Cannula (NC) Response: UnchangedSucceeded @14:27 Patient Restraint Response: UnchangedSucceeded Timeline 14:07,Call Received 14:07,Dispatch Notified 14:11,Dispatched 14:11,En Route 14:19,On Scene 14:22,At Patient 14:22,ALS Assessment,Response: Unchanged 14:24,Stretcher,Response: Unchanged 14:27,Patient Restraint,Response: UnchangedSucceeded, 14:38,BP: 129/64 M,PULSE: 78,RR: 18 R,SPO2: 93 Ox,ETCO2: ,B,PAIN: ,GCS: 12, 14:38,3-Lead ECG,Response: Unchanged 14:42,Oxygen FlowRate: 2 Device: Nasal Cannula (NC) Response: UnchangedSucceeded, 14:45,IV Therapy - Saline Lock 10cc 20 ga Site: Forearm-Right,Response: UnchangedSucceeded, [address] [address] EMS Patient Care Report Name: JOE LITTLEJOHN Room #: REG DEXTER Callaway#: [id number] Admission: 05/31/21 Attend Phys: Discharge: Date of : 50 Report #: [id number] 14:47,Depart Scene 14:56,At Destination 15:33,Call Closed Disclaimer v1.1 Copyright 2020 [employer] This EMS Care Summary contains data elements from the applicable legal record (which may be displayed differently). It is designed to provide pertinent information for the following purposes: continuity of care, clinical quality, and state data reporting. The complete legal record is available to ED staff and administrators of the receiving hospital in [employer] Patient Tracker. All data is provided "as is."
[~2021-05-31 15:03] MED LIST changes: +AMARYL2 M1 PO; +COREG25 MG PO; +DEXAMETHASONE4 MG PO; +HYDROCODONE-AP1 EAC6 PO; +LISINOPRIL20 MG PO; +NOVOLOG100 UNIT/1 SUBQ; +OXYBUTYNIN 5 MG5 M2 PO; +SENOKOT-S1 TA2 PO; +SEROQUEL 50 MG50 MG PO; +TRAZODONE HCL100 MG PO; +TUMS PO; +VITAMIN B-12500 MCG PO; +XANAX 0.25 MG0.25 MG PO; +ZYPREXA 5 MG TAB5 MG SUBLING
[2021-05-31 15:07] VITALS: BP 131/72
[2021-05-31 15:30] LABS: ABSOLUTE NEUTROPHILS 9.5 thou/uL (1.4-8.2); BASOPHILS 0.6 % (0.0-2.0); EOSINOPHILS 0.9 % (0.0-3.0); HEMATOCRIT 39.9 % (42.0-52.0); LYMPHOCYTES 9.5 % (24.0-44.0); MCH 30.2 pg (26.0-34.0); MCHC 32.5 g/dL (28.0-37.0); MCV 93.1 fL (80.0-100.0); MONOCYTES 5.9 % (1.0-8.0); PLATELET COUNT 165 thou/uL (150-400); POLYS 83.1 % (36.0-66.0); RBC 4.29 mil/uL (4.50-6.00); WBC 11.4 thou/uL (4.0-11.0)
[2021-05-31 15:45] LABS: URINE BILIRUBIN NEGATIVE (Negative); URINE BLOOD 2+ (Negative); URINE CLARITY CLEAR; URINE COLOR YELLOW; URINE GLUCOSE-RANDOM* NEGATIVE (Negative); URINE KETONES NEGATIVE (Negative); URINE LEUKOCYTES-REFLEX NEGATIVE (Negative); URINE NITRITE-REFLEX NEGATIVE (Negative); URINE PROTEIN (DIPSTICK) TRACE (Negative); URINE UROBILINOGEN 0.2 E.U./dl (0.2-1.0)
[2021-05-31 15:49] LABS: CALCIUM 8.8 mg/dL (8.5-10.1); CREATININE 1.7 mg/dL (0.7-1.3); POTASSIUM 3.6 mmol/L (3.5-5.1)
[2021-05-31 15:53] LABS: AMP/METHAMP Negative (Negative); BARBITURATES Negative (Negative); BENZODIAZEPINES Negative (Negative); COCAINE Negative (Negative); METHADONE Negative (Negative); OPIATES Negative (Negative); PCP Negative (Negative)
[2021-05-31 15:59] LABS: ALBUMIN 3.2 g/dL (3.4-5.0); TOTAL BILIRUBIN 0.4 mg/dL (0.2-1.0); TOTAL PROTEIN 7.1 g/dL (6.4-8.2)
[2021-05-31 16:05] LABS: BACTERIA-REFLEX None Seen /HPF (None Seen); CASTS None Seen /LPF (None Seen); CRYSTALS None Seen /LPF (None Seen); SQUAMOUS None Seen /LPF (0-3); URINE RBC 1-2 Rare /HPF (NONE SEEN); URINE WBC-REFLEX 0-5 Rare /HPF (0-5)
[2021-05-31] MEDS ORDERED: NORVASC5 M1 PO (16:14)
[2021-05-31] MEDS ORDERED: BACLOFEN 10MG T10 MG PO (16:14)
[2021-05-31] MEDS ORDERED: CARVEDILOL25 MG PO (16:15)
[2021-05-31] MEDS ORDERED: MELATIN3 MG PO (16:17)
[2021-05-31] MEDS ORDERED: HYDROCODON-ACE1 EAC7 PO (16:17)
[2021-05-31] MEDS ORDERED: LAMICTAL150 MG PO (16:18)
[2021-05-31] MEDS ORDERED: OMEPRAZOLE40 MG PO (16:19)
[2021-05-31] MEDS ORDERED: NAPROXEN SODIU220 M2 PO (16:19)
[2021-05-31 20:00] VITALS: BP 142/75
[2021-06-01 01:40] LABS: HEMATOCRIT 37.8 % (42.0-52.0); HEMOGLOBIN 12.7 gm/dL (14.0-18.0); MCHC 33.7 g/dL (28.0-37.0); MCV 92.2 fL (80.0-100.0); RBC 4.1 mil/uL (4.50-6.00); RDW 14.9 % (10.5-14.5); WBC 11.5 thou/uL (4.0-11.0)
[2021-06-01 01:55] VITALS: BP 144/70
[2021-06-01 02:57] LABS: CALCIUM 8.4 mg/dL (8.5-10.1); CREATININE 1.6 mg/dL (0.7-1.3); POTASSIUM 3.3 mmol/L (3.5-5.1)
[2021-06-01 04:34] VITALS: BP 163/85
[2021-06-01 06:59] VITALS: BP 163/85
--- NOTE | 2021-06-01 07:41 | EKG ---
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 : 1950 Requested By: Hugo Zuniga Order Number: [id number] MD: William Lindsay Measurements Intervals [place] Rate: 64 P: 33 WI: 173 QRS: 17 QRSD: 101 T: 10 QT: 457 QTc: 472 Interpretive Statements Sinus rhythm Baseline wander in lead(s) V5,V6 Compared to ECG 07/31/2017 17:29:17 No significant changes Electronically Signed On 06-01-2021 7:41:08 PIPELINE WELDER by William Lindsay [email or web address] <ELECTRONICALLY SIGNED> By: William Lindsay MD, [facility] 06/01/21 0741 D: [id number] 26 William Lindsay MD, FAC /EPI
[2021-06-01 17:57] VITALS: BP 135/65
[2021-06-01 19:22] VITALS: BP 157/71
[2021-06-02 04:26] VITALS: BP 163/74
--- NOTE | 2021-06-02 05:54 | NUR ---
ASSUMED CARE OF PT AT 1900. PT ASSESSED TO BE AOX3 70M PRESENTING WITH ENCEPHALOPATHY/CONFUSION/WEAKNESS. PT WAS ABLE TO REST QUIETLY IN ROOM THROUGHOUT THE NIGHT WITH NO COMPLAINTS, VSS. CALLED MD EARLY IN THE SHIFT TO ASK FOR HOME MEDS TO BE RESTARTED THERE ARE SOME KENNEY, HARDWARE DESIGNER HAS BEEN EXTEMELY BUSY THROUGHOUT THE SHIFT. PT REQUESTED FOOD BUT IS NPO PENDIND VIDEO SWALLOW, WILL HAVE DONE IN AM. UPDATED FAMILY WHO CALLED ON PHONE AND GAVE PT ADMIT PACKET WITH CODE. PT RUNS NS ON TELE, FLUIDS INFUSING, CATHETER PATENT, STABLE ON 2L O2. WILL PASS ON ALL INTERVENTIONS TO DAY SHIFT CARE TEAM SO POC CAN BE STARTED. WILL CONT TO MONITOR.
[2021-06-02 08:17] VITALS: BP 195/95
[2021-06-02 11:01] VITALS: BP 179/84
--- NOTE | 2021-06-02 13:00 | NUR ---
Assumed care of pt this AM. Pt is A&O x3, on NC which he has removed, but sating ok. SA on the monitor. Pt denies any pain. Pt evaluated by ST today & diet posted in chart. Prajapati patent & draining yellow urine. Pt states that he normally uses a wheelchair at home. Will continue to assess pt needs throughout shift.
[2021-06-02 15:00] VITALS: BP 154/69
[2021-06-02 19:27] VITALS: BP 175/93
--- NOTE | 2021-06-03 03:31 | NUR ---
PATIENT AAOX4 WATCHING TV. VSS. PATIENT HAS LIMITED USE OF L SIDE OF BODY DUE TO HX OF CVA. TOLERATING FLUIDS WITH THICKENED LIQUIDS. DENIES PAIN OR NEEDS. ALL SAFETY PRECAUTIONS IN PLACE. COMPLIANT WITH TREATMENT. SR ON MONITOR. RESTING WELL ON RA.
[2021-06-03 04:50] VITALS: BP 183/93; BP 183/936
[2021-06-03 07:52] VITALS: BP 181/80
[2021-06-03 11:32] VITALS: BP 145/71
[2021-06-03 15:31] VITALS: BP 148/74
--- NOTE | 2021-06-03 17:00 | NUR ---
PATIENT HAD A BLOOD GLUCOSE CHECK OF 43. GAVE PATIENT 2 CARTONS OF JUICE AND RECHECKED BG, WHICH WAS IMPROVED TO 75. HELD SLIDING SCALE INSULIN AND ENCOURAGING ORAL INTAKE.
[2021-06-03 21:36] VITALS: BP 164/77
--- NOTE | 2021-06-03 23:45 | NUR ---
RESTING IN BED AAOX3. REQUESTS ASSISTANCE TO DIAL PHONE. HE IS CALM AND COOPERATIVE. DENIES PAIN. SAFETY PRECAUTIONS IN PLACE. SILVERMAN PATENT AND DRAINING TO GRAVITY. COMPLIES WITH MEDS AND TREATMENT. VSS. BREATHING NORMALLY ON RA WITH NO S/S OF DISTRESS. BLOOD SUGARS ELEVATED AFTER HAVING HYPOLYCEMIC EPISODE EARLIER IN THE DAY.
[2021-06-04 03:52] VITALS: BP 169/87
[2021-06-04 07:20] VITALS: BP 147/86
[2021-06-04 12:04] VITALS: BP 120/64
--- NOTE | 2021-06-04 15:06 | NUR ---
PT ADMITTED FOR AMS. CM REVIEWED PTS CHART AND SPOKE WITH CARE TEAM. CM MET WITH PT THIS DAY. CM ROLE INTRODUCED. PT REPORTS HE LIVES IN HIS APARTMENT ALONE. HE REPORTS HAVING HH THROUGH [facility] 2-3 TIMES PER WEEK. 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 WENT TO ACUTE REHAB AT [facility]. DISCUSSED POST ACUTE CARE. PT DENIES NEED FOR POST ACUTE CARE. LEFT [facility] LIST IN PTS ROOM. SPOKE WITH SON WHO IS CURRENTLY OUT OF TOWN FOR WORK. REQUESTED WE CALL PTS COUSIN. LEFT MESSAGE WITH COUSIN TO CALL. PCP DR PEACOCK. CM FOLLOWING.
[2021-06-04 15:29] VITALS: BP 161/82
[2021-06-04 19:56] VITALS: BP 164/73
[2021-06-05 04:11] VITALS: BP 157/78
--- NOTE | 2021-06-05 06:07 | NUR ---
PATIENT CARES WHERE ASSUMED AT SHIFT CHANGE. PATIENT WAS ASSESSED AND MEDS WERE PASSED. PATIENT CONTINUES TO FELL LIKE HE IS FALLING EVEN THOUGH HE IS LAYING FLAT IN HIS BED. HE FEEL THE LACK OF SUPPORT WELL. EVEN THOUGH HE IS IN HIS BED HE WOULD THINK HE IS FALLING. WILL CONTINUE TO MONITOR. ROUNDS WHERE DONE. THE BED IS IN A LOW AND LOCKED POSITION
[2021-06-05 07:30] VITALS: BP 170/88
--- NOTE | 2021-06-05 09:22 | NUR ---
Spoke with cousin Gonzalo at bedside. Discussed post acute care. Cousing interested in referrals to [facility] in that choice. Patient agreeable with plan.
[2021-06-05 12:00] VITALS: BP 127/71
--- NOTE | 2021-06-05 14:19 | NUR ---
SPOKE TO PT AND PTS COUSIN ELGIN THIS AM AT BEDSIDE. BOTH REQUESTED REFERRAL BE SENT TO [facility] FOR SNF SERVICES. REFERRAL SENT. THEY HAVE ACCEPTED FOR SNF AND ARE SUBMITTING FOR AUTH. THEY HAVE A BED AVAILABLE ONCE PT DISCHARGES. PT AWARE. LEFT MESSAGE FOR PTS MARYCARMENS[facility] ELGIN. PT WILL NEED TRANSPORTATION ON DC SET UP BY CM. CM WILL FOLLOW.
[2021-06-05 16:00] VITALS: BP 136/64
[2021-06-05 19:41] VITALS: BP 160/72
--- NOTE | 2021-06-05 19:46 | NUR ---
PATIENT DENIES ANY PAIN. PATIENT REQUESTED TO TRANSFER FROM BED TO CHAIR, PATIENT REQUIRES A TWO PATIENT TRANSFER WITH A GAIT BELT. PATIENT DOES NOT HELP AT ALL AND UNABLE TO PUT WEIGHT ON EITHER LEG EVEN WITH CLEAR INSTRUCTIONS. PATIENT'S COUSIN BROUGHT A BOX FULL OF MEDICATIONS TO CLARIFY WHY THE PATIENT ISN'T GETTING HIS "PSYCH MEDS". ALL MEDS CAREFULLY GONE THROUGH AND THERE WERE NOT ANY PYSCH MEDS. THERE WERE MULTIPLE MEDS BOTTLES PRESCRIBED BY DIFFERENT PHYSICIANS WITH DIFFERENT DOSAGES OF THE SAME MED. MEDS WERE SENT BACK HOME WITH THE PATIENT'S COUSIN. PATIENT DID STAY AWAKE FOR THE MAJORITY OF THE DAY. WILL CONTINUE TO FOLLOW.
[2021-06-06 04:14] VITALS: BP 94/52
--- NOTE | 2021-06-06 05:20 | NUR ---
PATIENTS CARES WHERE ASSUMED AT SHIFT CHANGE. PATIENT SITTING UP IN THE CHAIRS AT THE START OF THE SHIFT. WHEN PATIENT WAS PLACED BACK INTO THE BED HE IS A SANDRA TWO PERSON ASSISSET. PATIENT REQUESTED HIS TRAZADONE AT ELEVEN. ROUNDS WHERE DONE AND THE BED IS IN A LOW AND LOCKED POSITION.
[2021-06-06 07:39] VITALS: BP 132/81
[2021-06-06 10:25] LABS: ABSOLUTE NEUTROPHILS 7.6 thou/uL (1.4-8.2); BASOPHILS 0.7 % (0.0-2.0); EOSINOPHILS 2.2 % (0.0-3.0); HEMOGLOBIN 13.9 gm/dL (14.0-18.0); LYMPHOCYTES 14.4 % (24.0-44.0); MCH 30.9 pg (26.0-34.0); MCHC 33.9 g/dL (28.0-37.0); MONOCYTES 6.9 % (1.0-8.0); PLATELET COUNT 209 thou/uL (150-400); POLYS 75.8 % (36.0-66.0); RBC 4.51 mil/uL (4.50-6.00); RDW 14.6 % (10.5-14.5)
[2021-06-06 10:39] LABS: CALCIUM 8.9 mg/dL (8.5-10.1); CREATININE 1.6 mg/dL (0.7-1.3); POTASSIUM 3.1 mmol/L (3.5-5.1)
[2021-06-06 11:10] VITALS: BP 105/61
[2021-06-06 15:29] VITALS: BP 101/56
--- NOTE | 2021-06-06 17:35 | NUR ---
ASESSMENT CHARTED - MEDS PER AUG - NO CO'S OF PAIN OR NAUSEA. CHANDU DIET AND FLUIDS. OT UP TO THE CHAIR WITH PHYS THERAPY - MAX ASSIST X 2 TO GET PT BACK INTO BED WITH USE OF GAIT BELT. BLOOS SUGAR LOW THIS AFTERNOON - GIVEN CRACKERS/ MILK AND JUICE AND PT NOW EATING DINNER. NO CO'S AT THE PRESNT TIME.
[2021-06-06 19:29] VITALS: BP 124/59
--- NOTE | 2021-06-07 04:03 | NUR ---
RECEIVED PATIENT AT 1900H.ASSESSMENT DONE CHARTED.HAD EPISODES OF FORGETFULNESS AND CONFUSION, REORIENTATION DONE.FALL PREVENTION MEASURES MAINTAINED.NO COMPLAINTS OF PAIN.NOT IN DISTRESS.WITH SILVERMAN CATHETER INTACT.MEDS GIVEN PER AUG.TO CONTINOUSLY MONITOR.
[2021-06-07 05:15] VITALS: BP 149/77
[2021-06-07 07:34] VITALS: BP 127/68
--- NOTE | 2021-06-07 11:14 | NUR ---
Nutrition: pt admitted with AMS, several falls recently. CT head WNL. Visited with pt, continues to be quite confused. Short stature, noted 4'1" entered but likely 4'11" more accurate-pt was able to verbalize this also. Will correct. UBW stated as 116#, current 113#. PMH: Hemorrhagic CVA, bipolar, DM, recreational drug use. PO documented as 50-90% of meals on Carb controlled diet. ST follows pt and previously required mech soft with nectar thick liquids-this modification no longer needed. On SSI, glimepiride, statin. BG 96-218. Continue to encourage adequate intake. Working on SNF transfer. Consider low nutrition risk.
[2021-06-07 11:58] VITALS: BP 101/64
[2021-06-07] MEDS ORDERED: NOVOLOG100 UNIT/1 SUBQ (14:31)
--- NOTE | 2021-06-07 14:45 | NUR ---
INSURANCE AUTH APPROVED FOR POST ACURE CARE TO [facility]. RECEIVED DC ORDERS FOR PT BY DR AVILA. SPOKE TO JADYN AT [facility] TO ARRANGE TRANSPORATION. ORDERS AND DC SUMMARY FAXED TO [facility]. CHART COPIED. RN HAS NUMBER FOR REPORT. FOR SON DANISHA AND NOTIFIED PTS COUSIN ELGIN.
[2021-06-07 15:11] VITALS: BP 114/68
--- NOTE | 2021-06-07 17:21 | NUR ---
assessment as charted- meds as per aug - jacoby diet and fluids. bllod sugar covered at breakfast and blood sugar at lunch 57 given crackersand apple juide with good effect. no co's of pain or nausea. seen by phys and occ therapy. pt to [facility] this evening. report called to [facility]. left unit via wheelchair van with beliongings.
== END 2021-06-07 17:13 | DRG 88 ==
LOC: ER 15:03 → EROBS 17:20 → 2N 17:20 → EROBS 18:59 → 2N 06-01 18:16
PROVIDERS: Emergency Medicine; Hospitalist; ADMIT Hospitalist; ATTEND Hospitalist
DX: S06.0X9A Concussion with loss of consciousness of unspecified duration, initial encounter (principal); G93.41 Metabolic encephalopathy; N17.9 Acute kidney failure, unspecified; E11.9 Type 2 diabetes mellitus without complications; Z20.822 Contact with and (suspected) exposure to COVID-19; I10 Essential (primary) hypertension; F31.9 Bipolar disorder, unspecified; N40.0 Benign prostatic hyperplasia without lower urinary tract symptoms; E78.5 Hyperlipidemia, unspecified; H91.92 Unspecified hearing loss, left ear; F17.210 Nicotine dependence, cigarettes, uncomplicated; F12.90 Cannabis use, unspecified, uncomplicated; W18.39XA Other fall on same level, initial encounter; Y93.89 Activity, other specified; Z88.6 Allergy status to analgesic agent; Y92.89 Other specified places as the place of occurrence of the external cause; Y99.8 Other external cause status
CPT/HCPCS: 10081